=== PATIENT | female | born 1945 | race Caucasian/White ===

== ENCOUNTER 2019-12-26 14:47 | Inpatient (IN) ==
[2019-12-26] MEDS ORDERED: dilTIAZem HCl 5 MG/ML 5 ML VIAL IV STA ×2 (15:08→16:09)
[2019-12-26] MEDS ORDERED: SODIUM CHLORIDE 0.9% 1000ML 500 ML IV ONE ×2 (15:08→16:09)
--- NOTE | 2019-12-26 15:36 | Emergency Department Note ---
Entered by Tray Gilman acting as a scribe for Zacarias Schultz DO History of Present Illness General Chief complaint: Arrhythmia/Palpitations Stated complaint: IRREG HEART BEAT Time Seen by Provider: 12/26/19 15:03 Source: patient Limitations: no limitations History of Present Illness Onset (ago): hour(s) (BRONC BREAKER) Location: chest Pain Consistency: + constant Quality: + constant Associated symptoms: + denies other symptoms (trouble breathing, swelling or pain in legs, ); no chest pain The patient is a 74 year old female who presents to the Emergency Room with complaints of constant tachycardia starting BRONC BREAKER. The patient states she has been sick for a week. She states she was initially taking Alkaseltzer and Mucinex. She states she last took [id number] drugs two days ago. She states she takes two BP medication and one medication for her stomach. She states today she went to her PCP and the EKG showed her HR at 182. She states she is supposed to take baby aspirin daily, but states she ran out. The patient denies having chest pain, trouble breathing, swelling or pain in her legs, tobacco use, and alcohol use. She states her feet get really cold. She states her shoe worker is Dr. Eduardo. Home Medications Home Medications Medication Instructions Recorded Confirmed Type aspirin [Aspir-81] 81 mg PO DAILY 12/26/19 12/26/19 History atorvastatin 40 mg PO DAILY 12/26/19 12/26/19 History cholecalciferol (vitamin D3) 2,000 unit PO DAILY 12/26/19 12/26/19 History [Vitamin D3] losartan [Cozaar] 100 mg PO DAILY 12/26/19 12/26/19 History metoprolol tartrate 25 mg PO DAILY 12/26/19 12/26/19 History pantoprazole 40 mg PO DAILY 12/26/19 12/26/19 History Allergies Allergy/AdvReac Type Severity Reaction Status Date / Time No Known Allergies Allergy Unverified 12/26/19 15:36 Past Med/Surg History Medical History CKD (chronic kidney disease) stage 3, GFR 30-59 ml/min KATHERYN (generalized anxiety disorder) GERD (gastroesophageal reflux disease) HLD (hyperlipidemia) Hypertension Morbid (severe) obesity due to excess calories CUCO (obstructive sleep apnea) does not use cpap Pre-diabetes Surgical History History of appendectomy History of cataract extraction History of tonsillectomy and adenoidectomy History of tubal ligation Family History Brother Coronary heart disease Myocardial infarction Mother Valvular heart disease Grandmother (Maternal) Stroke Social History (Updated 12/26/19 @ 17:38 by Dana Uribe PA-C) Preferred Language: Nigerien Communication Ability: Effective marital status: Current Living Situation: Spouse Feels Safe at Home: Yes Smoking Status: Never smoker Hx Alcohol Use: No Hx Substance Use: No Review of Systems See HPI for pertinent positives & negatives. and A total of 10 systems reviewed and were otherwise negative Physical Exam Vital Signs Vital Signs - 24 hr 12/26/19 14:52 12/26/19 15:04 12/26/19 15:06 Temperature Source Oral Pulse Rate 158 H 181 H 183 H Pulse Rate [Apical] Pulse Rate from SpO2 Sensor 159 H Respiratory Rate 20 20 22 Blood Pressure 159/106 H 156/93 H Blood Pressure [Right Arm] Blood Pressure Mean 123 121 Blood Pressure Mean [Right Arm] Pulse Oximetry 92 98 Oxygen Delivery Method Room Air Sepsis Recent Fever Within 48 Hours No Sepsis New/Unexplained Change in Mental Status No Sepsis Action Taken by Nursing No Action Required 12/26/19 15:15 12/26/19 15:30 12/26/19 15:45 Temperature Source Pulse Rate 172 H 119 H 114 H Pulse Rate [Apical] Pulse Rate from SpO2 Sensor 83 82 Respiratory Rate 18 15 13 Blood Pressure Blood Pressure [Right Arm] Blood Pressure Mean Blood Pressure Mean [Right Arm] Pulse Oximetry 97 91 Oxygen Delivery Method Sepsis Recent Fever Within 48 Hours Sepsis New/Unexplained Change in Mental Status Sepsis Action Taken by Nursing 12/26/19 16:00 12/26/19 16:03 12/26/19 16:06 Temperature Source Pulse Rate 123 H 107 H Pulse Rate [Apical] Pulse Rate from SpO2 Sensor 83 82 Respiratory Rate 14 21 Blood Pressure 161/113 H Blood Pressure [Right Arm] Blood Pressure Mean 132 Blood Pressure Mean [Right Arm] Pulse Oximetry 95 94 94 Oxygen Delivery Method Sepsis Recent Fever Within 48 Hours Sepsis New/Unexplained Change in Mental Status Sepsis Action Taken by Nursing 12/26/19 16:17 12/26/19 16:22 12/26/19 16:27 Temperature Source Pulse Rate 130 H 142 H Pulse Rate [Apical] 152 H Pulse Rate from SpO2 Sensor 125 H 109 H Respiratory Rate 17 19 22 Blood Pressure 159/135 H 135/104 H Blood Pressure [Right Arm] 135/105 H Blood Pressure Mean 149 117 Blood Pressure Mean [Right Arm] 115 Pulse Oximetry 95 95 97 Oxygen Delivery Method Room Air Sepsis Recent Fever Within 48 Hours Sepsis New/Unexplained Change in Mental Status Sepsis Action Taken by Nursing 12/26/19 16:30 12/26/19 16:32 12/26/19 16:45 Temperature Source Pulse Rate 161 H 125 H 103 H Pulse Rate [Apical] Pulse Rate from SpO2 Sensor 151 H 109 H 96 H Respiratory Rate 14 14 12 Blood Pressure 98/62 L 139/109 H Blood Pressure [Right Arm] Blood Pressure Mean 88 114 Blood Pressure Mean [Right Arm] Pulse Oximetry 98 97 97 Oxygen Delivery Method Sepsis Recent Fever Within 48 Hours Sepsis New/Unexplained Change in Mental Status Sepsis Action Taken by Nursing 12/26/19 17:00 12/26/19 17:15 12/26/19 17:26 Temperature Source Pulse Rate 142 H 118 H 102 H Pulse Rate [Apical] Pulse Rate from SpO2 Sensor 141 H Respiratory Rate 31 H 16 11 L Blood Pressure 154/100 H Blood Pressure [Right Arm] Blood Pressure Mean 135 Blood Pressure Mean [Right Arm] Pulse Oximetry 96 Oxygen Delivery Method Sepsis Recent Fever Within 48 Hours Sepsis New/Unexplained Change in Mental Status Sepsis Action Taken by Nursing 12/26/19 17:27 12/26/19 17:30 12/26/19 17:31 Temperature Source Pulse Rate 117 H 126 H 117 H Pulse Rate [Apical] Pulse Rate from SpO2 Sensor 120 H 70 Respiratory Rate 15 12 17 Blood Pressure 130/105 H Blood Pressure [Right Arm] Blood Pressure Mean 107 Blood Pressure Mean [Right Arm] Pulse Oximetry 93 94 Oxygen Delivery Method Sepsis Recent Fever Within 48 Hours Sepsis New/Unexplained Change in Mental Status Sepsis Action Taken by Nursing GENERAL: Patient is awake alert in no acute distress patient is resting comfortably and showing no signs of anxiety EYES: The conjunctivae are clear. The pupils are round and reactive. EARS, NOSE, MOUTH AND THROAT: The nose is without any evidence of any deformity. Mucous membranes are moist. NECK: The neck is nontender and supple. RESPIRATORY: Normal respiratory effort is noted there is no evidence of wheezing rhonchi or rales CARDIOVASCULAR: Tachycardic and irregular rate was noted to auscultation. There is no definite murmur. GASTROINTESTINAL: The abdomen is soft. Abdomen is nontender. MUSCULOSKELETAL/EXTREMITIES: There is no evidence of gross deformity full range of motion is noted in the hips and shoulders. SKIN: There is no obvious evidence of any rash. There are no petechiae, pallor or cyanosis noted. NEUROLOGIC: Patient is awake alert and oriented x3. Course Course 1504: The patient was evaluated in room C9, and a complete history and physical examination were performed. 1631: I discussed the patient's case with Dr[facility]. He will evaluate the patient for further management. Administered Medications Magnesium Sulfate/Dextrose (Magnesium Sulfate / D5w) 1 gm in 100 mls @ 100 mls/hr IV Q1H STEPHENIE Stop: 12/26/19 18:14 Last Admin: 12/26/19 16:27 Dose: 100 mls/hr Documented by: [id number] Discontinued Medications Diltiazem HCl (Cardizem) 10 mg IV NOW STA Stop: 12/26/19 15:09 Last Admin: 12/26/19 15:22 Dose: 10 mg Documented by: [id number] Cosigned by: [id number] Diltiazem HCl (Cardizem) 10 mg IV NOW STA Stop: 12/26/19 16:10 Last Admin: 12/26/19 16:27 Dose: 10 mg Documented by: [id number] Cosigned by: [id number] Sodium Chloride (Nss 1000ml) 500 mls @ 999 mls/hr IV .Q31M ONE Stop: 12/26/19 15:38 Last Infusion: 12/26/19 15:52 Dose: 0 mls/hr Documented by: [id number] Admin: 12/26/19 15:22 Dose: 999 mls/hr Documented by: [id number] Sodium Chloride (Nss 1000ml) 500 mls @ 999 mls/hr IV .Q31M ONE Stop: 12/26/19 16:39 Last Admin: 12/26/19 16:27 Dose: 999 mls/hr Documented by: [id number] Potassium Chloride (Klor-Con M20) 40 meq PO NOW STA Stop: 12/26/19 16:50 Last Admin: 12/26/19 17:19 Dose: 40 meq Documented by: [id number] Critical Care Time Critical Care Time: Yes Total Critical Care Time: 63 I have personally spent 63 minutes of critical care time in the direct management of this patient. This includes bedside care, interpretation of diagnostic studies, and testing, discussion with consultants, patient, and family members, and other required patient management activities. This 63 minutes is in excess of all separately billable procedures. Medical Decision Making Differential Diagnosis Differential diagnosis includes etiologies such as premature contractions, electrolyte abnormality, cardiac dysrhythmia, thyroid dysfunction, pulmonary embolism, infection, gastrointestinal, as well as others were entertained. Medical Records Attestation: I reviewed the patient's medical records. Home Medications Current Medication List: was personally reviewed by me Laboratory Data Attestation: I reviewed the patient's lab results. Result diagrams: 12/26/19 15:19 12/26/19 15:19 Lab Results 12/26/19 12/26/19 12/26/19 Range/Units 15:19 15:19 15:19 WBC 11.00 H (4.8-10.8) K/uL RBC 6.01 H (4.2-5.4) M/uL Hgb 16.9 H (12.0-16.0) g/dL Hct 49.0 H (37-47) % MCV 81.5 (80-100) fL MCH 28.1 (25-34) pg MCHC 34.5 (32-36) g/dL RDW Std Deviation 39.9 (36.4-46.3) fL RDW Coeff of Jakob 13.3 (11.5-14.5) % Plt Count 446 H (130-400) K/uL MPV 9.4 (7.4-10.4) fL Immature Gran % (Auto) 0.2 % Neut % (Auto) 54.0 % Lymph % (Auto) 38.3 % Morehouse % (Auto) 5.8 % Eos % (Auto) 1.4 % Baso % (Auto) 0.3 % Immature Gran # (Auto) 0.02 (0.00-0.02) K/uL Neut # (Auto) 5.95 (1.4-6.5) K/uL Lymph # (Auto) 4.21 H (1.2-3.4) K/uL Morehouse # (Auto) 0.64 H (0.11-0.59) K/uL Eos # (Auto) 0.15 (0-0.5) K/uL Baso # (Auto) 0.03 (0-0.2) K/uL PT 10.3 (9.0-12.0) Seconds INR 1.0 (0.9-1.1) APTT 28.6 (21.0-31.0) Seconds PTT Ratio 1.1 Sodium 138 (136-145) mmol/L Potassium 3.7 (3.5-5.1) mmol/L Chloride 106 (98-107) mmol/L Carbon Dioxide 24 (21-32) mmol/L Anion Gap 8.0 (3-11) BUN 17 (7-18) mg/dl Creatinine 1.36 H (0.6-1.2) mg/dl Est Cr Clr Drug Dosing 41.5 ml/min Est GFR ( Amer) 44.6 Est GFR (Non-Af Amer) 38.5 BUN/Creatinine Ratio 12.7 (10-20) Glucose 120 H (70-99) mg/dl Calcium 9.4 (8.5-10.1) mg/dl Magnesium 1.7 L (1.8-2.4) mg/dl Total Bilirubin 0.7 (0.2-1) mg/dl AST 17 (15-37) U/L ALT 39 (12-78) U/L Alkaline Phosphatase 113 (45-117) U/L Troponin I 0.015 (0-0.045) ng/ml Total Protein 7.8 (6.4-8.2) gm/dl Albumin 3.6 (3.4-5.0) gm/dl Globulin 4.2 H (2.5-4.0) gm/dl Albumin/Globulin Ratio 0.9 (0.9-2) TSH 2.220 (0.300-4.500) uIu/ml Imaging Data Radiologist's Impression: Radiology results as stated below per my review and the radiologist's interpretation: SINGLE VIEW CHEST CLINICAL HISTORY: Generalized weakness. FINDINGS: An AP, portable, upright chest radiograph is compared to study dated 07/13/2015. The examination is degraded by portable technique and patient rotation. The heart is enlarged noting atherosclerotic calcification of the thoracic aorta. The pulmonary vasculature is noncongested. There is bibasilar scarring/atelectasis. No airspace consolidation or large pleural effusion is identified. Atelectasis is noted at the lung bases. No pneumothorax is seen. The skeletal structures are osteopenic. The bony thorax is grossly intact. IMPRESSION: Cardiomegaly with no acute cardiopulmonary abnormality. ACT 112: Negative or not required by law. Results electronically sent 12/26/2019 3:50 PM to: Zacarias Schultz DO Electronically signed by: Chencho Stuart M.D. 12/26/2019 3:50 PM ECG Data Attestation: I personally reviewed and interpreted this ECG as follows: Indication: + tachycardia Rate (beats per minute): 180 Rhythm: + atrial fibrillation ECG ST segments: + ST depression (Diffuse) ECG Findings: no PVCs Comparison ECG Date: from (07/13/15) Change: the following changes noted (Diffuse ST segment depression is new) Blood Pressure Blood Pressure Findings: Elevated blood pressure Blood Pressure Disposition: Referred to patients primary care provider [facility] [place] Continuous Cardiac Monitoring: An order was placed for continuous cardiac monitoring. The monitor shows a rate of 182 with an atrial fibrillation rhythm The patient is a 74-year-old female who presented to the emergency department for an evaluation of palpitations. The patient was seen at her primary care physician's office and was sent to the emergency department by private vehicle for atrial fibrillation with RVR. The patient presented with a pulse rate in the 180s. She was treated with IV fluids IV magnesium and IV Cardizem. She was treated with multiple doses of IV Cardizem. She was reevaluated multiple times. Symptoms slowly improved and she was feeling much better. I discussed the patient's laboratory and radiographic studies with her. I also discussed the diagnosis of atrial fibrillation with her. I discussed her case with the on- call [facility] hospitalist group. They have agreed to evaluate the patient in the emergency department for further management disposition. I will defer anticoagulation to the hospitalist team. Impression & Plan Atrial fibrillation with RVR, Palpitation, Hypomagnesemia Discharge Plan Visit Data Chief Complaint: Arrhythmia/Palpitations Stated Complaint: IRREG HEART BEAT ED Provider: Zacarias Schultz Discharge Problem: Atrial fibrillation with RVR, Palpitation, Hypomagnesemia Patient Disposition: Being Evaluated by Hospitalist Forms Stand Alone Forms: My [facility] Prescriptions Prescriptions: No Action atorvastatin 40 mg Tablet 40 mg PO DAILY RF: 0 aspirin [Aspir-81] 81 mg Tablet,Delayed Release (Dr/Ec) 81 mg PO DAILY RF: 0 pantoprazole 40 mg Tablet,Delayed Release (Dr/Ec) 40 mg PO DAILY RF: 0 losartan [Cozaar] 100 mg Tablet 100 mg PO DAILY RF: 0 metoprolol tartrate 25 mg Tablet 25 mg PO DAILY RF: 0 cholecalciferol (vitamin D3) [Vitamin D3] 50 mcg (2,000 unit) Tablet 2,000 unit PO DAILY RF: 0 Referrals Referrals: Wilda Deluca, DO [Primary Care Provider] - The scribe's documentation has been prepared under my direction and personally reviewed by me in its entirety. I confirm that the note above accurately reflects all work, treatment, procedures, and medical decision making performed by me.
[2019-12-26 15:41] LABS: Basophils # (auto) 0.03 K/uL (0-0.2); Basophils % (auto) 0.3 %; Eosinophils # (auto) 0.15 K/uL (0-0.5); Eosinophils % (auto) 1.4 %; Hemoglobin 16.9 g/dL (12.0-16.0); Immature Granulocytes # (auto) 0.02 K/uL (0.00-0.02); Immature Granulocytes % (auto) 0.2 %; Lymphocytes # (auto) 4.21 K/uL (1.2-3.4); Lymphocytes % (auto) 38.3 %; Mean Corpuscular Hemoglobin 28.1 pg (25-34); Mean Corpuscular Hgb Conc 34.5 g/dL (32-36); Mean Corpuscular Volume 81.5 fL (80-100); Mean Platelet Volume 9.4 fL (7.4-10.4); Monocytes # (auto) 0.64 K/uL (0.11-0.59); Monocytes % (auto) 5.8 %; Neutrophils # (auto) 5.95 K/uL (1.4-6.5); Platelet Count 446 K/uL (130-400); RDW Coefficient of Variation 13.3 % (11.5-14.5); RDW Standard Deviation 39.9 fL (36.4-46.3); Red Blood Count 6.01 M/uL (4.2-5.4)
--- NOTE | 2019-12-26 15:51 | XRay Report ---
SINGLE VIEW CHEST CLINICAL HISTORY: Generalized weakness. FINDINGS: An AP, portable, upright chest radiograph is compared to study dated 07/13/2015. The examina tion is degraded by portable technique and patient rotation. The heart is enlarged noting atheroscler otic calcification of the thoracic aorta. The pulmonary vasculature is noncongested. There is bibasil ar scarring/atelectasis. No airspace consolidation or large pleural effusion is identified. Atelectas is is noted at the lung bases. No pneumothorax is seen. The skeletal structures are osteopenic. The b jimmie thorax is grossly intact. IMPRESSION: Cardiomegaly with no acute cardiopulmonary abnormality. ACT 112: Negative or not required by law. Results electronically sent 12/26/2019 3:50 PM to: Zacarias Schultz DO Electronically signed by: Chencho Stuart M.D. 12/26/2019 3:50 PM
[2019-12-26 15:53] LABS: Partial Thromboplastin Ratio 1.1; Partial Thromboplastin Time 28.6 Seconds (21.0-31.0); Prothrombin Time 10.3 Seconds (9.0-12.0)
[2019-12-26 16:03] LABS: Albumin Level 3.6 gm/dl (3.4-5.0); BUN Creatinine Ratio 12.7 (10-20); Calcium 9.4 mg/dl (8.5-10.1); Creatinine Clr Calc Pharmacy 41.5 ml/min; Est GFR (African American) 44.6; Est GFR (Non-African American) 38.5; Magnesium 1.7 mg/dl (1.8-2.4); Potassium 3.7 mmol/L (3.5-5.1)
[2019-12-26 16:14] LABS: Albumin Globulin Ratio 0.9 (0.9-2); Bilirubin,Total 0.7 mg/dl (0.2-1); Globulin 4.2 gm/dl (2.5-4.0); Thyroid Stimulating Hormone 2.22 uIu/ml (0.300-4.500); Total Protein 7.8 gm/dl (6.4-8.2); Troponin I 0.015 ng/ml (0-0.045)
[2019-12-26] MEDS: MAGNESIUM SULFATE / D5W 1 GM/100 ML BAG IV SCH ×2 (16:27→21:25)
[2019-12-26] MEDS ORDERED: POTASSIUM CHLORIDE 20 MEQ TABCR PO STA (16:49)
[2019-12-26] MEDS ORDERED: STAT IV Infusion **Titration per Protocol STA (17:01)
[2019-12-26] MEDS ORDERED: HEPARIN SODIUM/DEXTROSE 25,000 UNITS/500 ML BAG IV SCH (17:15)
--- NOTE | 2019-12-26 17:30 | History & Physical Report ---
Date of Service December 26, 2019 Assessment & Plan (1) Atrial fibrillation with RVR: New onset A. fib with RVR Etiology unknown but possibly secondary to underlying infection/illness, dehydration, structural heart disease, untreated CUCO Duration unknown but reports palpitations for 1 week Admit to telemetry consult cardiology Diltiazem drip for HR control Initiate IV heparin gtt ([id number] 3 age, F, HTN) Keep Mag > 2.0 and K > 4.0 give 40meq KCl x 1 now treat sinusitis, swab for flu echocardiogram ordered (2) Acute sinusitis: Augmentin 875mg bid x 7 days probiotic ordered (3) Dehydration: Cr elevated to 1.36 baseline 1.1 mild acute renal insufficiency possibly 2/2 to dehydration and underlying illness vs physiologic in response to Afib received 1L IVF while in ED repeat bmp in a.m. (4) Hypomagnesemia: Mag 1.7 mag sulfate 2g ordered in ED keep mag > 2.0 repeat in a.m. (5) Hypertension: Blood pressure elevated in ED, likely in setting of A. fib with RVR Continue losartan and metoprolol (6) HLD (hyperlipidemia): Continue statin (7) Pre-diabetes: Last A1c 6.3 04/2019 Repeat A1c in a.m. Monitor fasting blood sugar (8) Morbid (severe) obesity due to excess calories: BMI 44.5 Encourage lifestyle modifications (9) DVT prophylaxis: IV heparin ordered for A. fib with RVR Disposition: Admit to telemetry Follow-up: PCP Dr. Deluca upon discharge along with appropriate follow-up with cardiology Patient was seen and examined in collaboration with Dr. Casas, please see addendum History of Present Illness Chief Complaint: Referred by PCP secondary to A. fib with RVR. Primary Care Provider: Wilda Deluca, DO This is a 74-year-old female with significant PMH of HTN, HLD, prediabetes, CKD stage III, morbid obesity, CUCO noncompliant with CPAP, GERD who presents to ED at the referral of PCP secondary to A. fib with RVR. Patient expresses she has been having URI-like symptoms for 8 days. She complains of sinus congestion with purulent rhinorrhea, teeth pain, facial pain, feeling feverish, myalgias for the past 8 days. 2 days ago symptoms started to improve however when she woke up this morning she felt significantly worse and her left eye was, "crusted shut." She also elicits to having intermittent heart palpitations for the past 1 week. She scheduled appointment to see PCP today for URI-like symptoms and she was found to be in A. fib with RVR with heart rate in the 180s. She denies any previous history of atrial arrhythmias. She denies any documented fever, chills, sweats, lightheadedness, dizziness, chest pain. She does complain of D OE but felt this was secondary to her URI-like symptoms. She denies any nausea, vomiting, diarrhea, change in bowel or urinary habits. She has been taking OTC sinus medications as well as nasal spray, but unsure of what kind. She last took these approximately 2 days ago. She does have hx of HTN controlled on oral antihypertensives. +Hx of CUCO but not compliant with CPAP. In ED she was in afib with RVR but otherwise hemodynamically stable. She received 2 - 10mg bolus of IV cardizem with improvements in heart rate. With minimal activity she would spike in the 160s-180s. Lab work abnormalities noted for mild elevated WBC 11 K t, H&H 16.9 and 49.0, platelet 146, K3.7, mag 1.7, BUN 17, creatinine 1.36, glucose 120, troponin 0.015, TSH WNL. Chest x-ray was negative for acute cardiopulmonary abnormality but did reveal cardiomegaly. Initial EKG revealed A. fib with a heart rate of [address] depressions. Allergies Allergy/AdvReac Type Severity Reaction Status Date / Time No Known Allergies Allergy Unverified 12/26/19 15:36 Home Medications Home Medications Medication Instructions Recorded Confirmed Type aspirin [Aspir-81] 81 mg PO DAILY 12/26/19 12/26/19 History atorvastatin 40 mg PO DAILY 12/26/19 12/26/19 History cholecalciferol (vitamin D3) 2,000 unit PO DAILY 12/26/19 12/26/19 History [Vitamin D3] losartan [Cozaar] 100 mg PO DAILY 12/26/19 12/26/19 History metoprolol tartrate 25 mg PO DAILY 12/26/19 12/26/19 History pantoprazole 40 mg PO DAILY 12/26/19 12/26/19 History Past Med/Surg History Medical History CKD (chronic kidney disease) stage 3, GFR 30-59 ml/min KATHERYN (generalized anxiety disorder) GERD (gastroesophageal reflux disease) HLD (hyperlipidemia) Hypertension Morbid (severe) obesity due to excess calories CUCO (obstructive sleep apnea) does not use cpap Pre-diabetes Surgical History History of appendectomy History of cataract extraction History of tonsillectomy and adenoidectomy History of tubal ligation Family History Brother Coronary heart disease Myocardial infarction Mother Valvular heart disease Grandmother (Maternal) Stroke Social History (Updated 12/26/19 @ 17:38 by Dana Uribe PA-C) Preferred Language: French Communication Ability: Effective Beliefs That Will Affect Care: None marital status: Current Living Situation: Spouse Other Information That Helps Us Care for You: No Feels Safe at Home: Yes Safety Concerns: Feels Safe At This Time Smoking Status: Never smoker Hx Alcohol Use: No Hx Substance Use: No Review of Systems Review of Systems: All systems reviewed & are unremarkable except as noted in HPI & below Physical Exam Physical Exam: Constitutional: WD/WN, morbidly obese, F, vitals as above, NAD, sitting up in bed, pleasant, conversing easily Head: Normocephalic, Atraumatic Eyes: PERRL, conjunctivae normal, anicteric sclerae ENMT: external ear and nose normal,+ facial swelling, pain to palpation of maxillary sinus, oropharynx normal Neck: trachea midline, no thyromegaly normal visual inspection Respiratory: normal respiratory effort, lungs clear to auscultation, no wheeze, rales, rhonchi. Normal insp/exp effort, no accessory muscle use Cardiovascular: IRR, IRR, no murmur, trace - + 1 b/l lower ext edema Vessels: no JVD or carotid bruit Chest: normal inspection of chest Abdomen: normal bowel sounds, soft, nontender, no hepatosplenomegaly Musculoskeletal: no cyanosis or clubbing, extremities motor strength 5/5 Skin: no rashes, warm and dry normal turgor Neurologic: PERRL, EOMI, accommodation nl, no face palsy, no dysarthria CN's II-XI intact bilaterally and moves all extremities Psychiatric: A+Ox3, euthymic affect Lymphatic: no cervical or axillary lymphadenopathy : deferred Results & Data Vital Signs (Past 12 Hours) Vital Signs Pulse Pulse Resp BP BP Pulse Ox 12/26/19 17:26 102 H 11 L 154/100 H 12/26/19 17:15 118 H 16 12/26/19 17:00 142 H 31 H 96 12/26/19 16:45 103 H 12 97 12/26/19 16:32 125 H 14 139/109 H 97 12/26/19 16:30 161 H 14 98/62 L 98 12/26/19 16:27 152 H 22 135/105 H 97 12/26/19 16:22 142 H 19 135/104 H 95 12/26/19 16:17 130 H 17 159/135 H 95 12/26/19 16:06 94 12/26/19 16:03 107 H 21 161/113 H 94 12/26/19 16:00 123 H 14 95 12/26/19 15:45 114 H 13 91 12/26/19 15:30 119 H 15 97 12/26/19 15:15 172 H 18 12/26/19 15:06 183 H 22 156/93 H 98 12/26/19 15:04 181 H 20 12/26/19 14:52 158 H 20 159/106 H 92 Laboratory Results Short CBC 12/26/19 12/26/19 Range/Units 15:19 15:19 WBC 11.00 H (4.8-10.8) K/uL Hgb 16.9 H (12.0-16.0) g/dL Hct 49.0 H (37-47) % Plt Count 446 H (130-400) K/uL Creatinine 1.36 H (0.6-1.2) mg/dl BMP 12/26/19 15:19 Sodium 138 Potassium 3.7 Chloride 106 Carbon Dioxide 24 BUN 17 Creatinine 1.36 H Glucose 120 H Calcium 9.4 Cardiac Enzymes 12/26/19 Range/Units 15:19 Troponin I 0.015 (0-0.045) ng/ml Liver Function 12/26/19 Range/Units 15:19 Total Bilirubin 0.7 (0.2-1) mg/dl AST 17 (15-37) U/L ALT 39 (12-78) U/L Alkaline Phosphatase 113 (45-117) U/L Albumin 3.6 (3.4-5.0) gm/dl Diagnostic Findings CXR: IMPRESSION: Cardiomegaly with no acute cardiopulmonary abnormality. Medications Administered Magnesium Sulfate/Dextrose (Magnesium Sulfate / D5w) 1 gm in 100 mls @ 100 mls/hr IV Q1H STEPHENIE Stop: 12/26/19 18:14 Last Admin: 12/26/19 16:27 Dose: 100 mls/hr Documented by: [id number] Discontinued Medications Diltiazem HCl (Cardizem) 10 mg IV NOW STA Stop: 12/26/19 15:09 Last Admin: 12/26/19 15:22 Dose: 10 mg Documented by: [id number] Cosigned by: [id number] Diltiazem HCl (Cardizem) 10 mg IV NOW STA Stop: 12/26/19 16:10 Last Admin: 12/26/19 16:27 Dose: 10 mg Documented by: [id number] Cosigned by: [id number] Sodium Chloride (Nss 1000ml) 500 mls @ 999 mls/hr IV .Q31M ONE Stop: 12/26/19 15:38 Last Infusion: 12/26/19 15:52 Dose: 0 mls/hr Documented by: [id number] Admin: 12/26/19 15:22 Dose: 999 mls/hr Documented by: [id number] Sodium Chloride (Nss 1000ml) 500 mls @ 999 mls/hr IV .Q31M ONE Stop: 12/26/19 16:39 Last Admin: 12/26/19 16:27 Dose: 999 mls/hr Documented by: [id number] Potassium Chloride (Klor-Con M20) 40 meq PO NOW STA Stop: 12/26/19 16:50 Last Admin: 12/26/19 17:19 Dose: 40 meq Documented by: [id number] ECG Rate (beats per minute): 180 Rhythm: atrial fibrillation Findings: + ST depression Code Status & VTE Plan Code Status Full Code VTE Prophylaxis Plan VTE Prophylaxis will be ordered: Yes Supervising Physician Co-Signing Physician Notes Attending addendum The patient was seen and examined in emergency room in presence of the She has been complaining of sinus pain and symptoms for the last 1 week Associated with palpitations but no chest pain and/or shortness of breath Denies any leg swelling And noted to have atrial fibrillation with RVR in the emergency room On examination Lying in bed with minimal distress due to sinus pain and pressure Hemodynamically stable with tachycardia Chest-clear to auscultate bilaterally Heart S1-S2 regular-, no murmur Abdomen-benign Extremities-trace edema bilaterally [employer]-alert, awake and oriented x3 Admission labs and imaging studies and EKG reviewed Has atrial fibrillation with RVR-Cardizem drip and heparin drip have been started Cardiology consulted Started with Augmentin for sinusitis Agree with assessment and plan as outlined above by OSWALDO Ibrahim Dr
[2019-12-26] MEDS ORDERED: ONDANSETRON INJ 2 MG/ML 2 ML VIAL IV PRN (18:04)
[2019-12-26] MEDS ORDERED: POLYETHYLENE (MIRALAX) 17 GM PACK PO PRN (18:04)
[2019-12-26] MEDS ORDERED: ALUMINUM/MAGNESIUM SUSP 30 ML UDC PO PRN (18:04)
[2019-12-26] MEDS ORDERED: ACETAMINOPHEN 325 MG TAB PO PRN (18:04)
[2019-12-26 18:24] LABS: Influenza A virus by PCR Neg for Influ A (Neg); Influenza B virus by PCR Neg for Influ B (Neg)
[2019-12-26] MEDS: SACCHAROMYCES BOULARDII 250 MG CAP PO SCH (19:12)
[2019-12-26] MEDS: AMOXICILLIN/CLAVULANATE 875 MG TAB PO SCH (19:12)
[2019-12-26] MEDS: dilTIAZem HCL 125 MG in DEXTROSE 5% 100 ML IV SCH (19:38)
[2019-12-26] MEDS: Heparin IV Standard *NO* Bolus IV SCH ×5 (20:05→22:13)
--- NOTE | 2019-12-26 22:31 | Electrocardiogram Report ---
Test Reason : Blood Pressure : / mmHG Vent. Rate : 180 BPM Atrial Rate : 178 BPM P-R Int : 000 ms QRS Dur : 070 ms QT Int : 256 ms P-R-T Axes : 000 -15 127 degrees QTc Int : 443 ms Atrial fibrillation with rapid ventricular response Nonspecific ST abnormality Abnormal ECG When compared with ECG of 13-JUL-2015 14:04, Atrial fibrillation has replaced Sinus rhythm Vent. rate has increased BY [address] now depressed in Inferolateral leads Nonspecific T wave abnormality now evident in Lateral leads Confirmed by Joe Reynoso ([id number]) on 12/26/2019 10:31:46 PM Referred By: Confirmed By:Joe Reynoso
[2019-12-27 02:21] LABS: Hematocrit (blood only) 43.5 % (37-47); Hemoglobin 15.1 g/dL (12.0-16.0); Mean Corpuscular Hemoglobin 28.6 pg (25-34); Mean Corpuscular Hgb Conc 34.7 g/dL (32-36); Mean Corpuscular Volume 82.4 fL (80-100); Mean Platelet Volume 8.8 fL (7.4-10.4); Platelet Count 412 K/uL (130-400); RDW Coefficient of Variation 13.5 % (11.5-14.5); RDW Standard Deviation 40.4 fL (36.4-46.3); Red Blood Count 5.28 M/uL (4.2-5.4); White Blood Count 11.47 K/uL (4.8-10.8)
[2019-12-27 02:30] LABS: Partial Thromboplastin Ratio 1.5; Partial Thromboplastin Time 40.7 Seconds (21.0-31.0)
[2019-12-27 02:51] LABS: BUN Creatinine Ratio 11.5 (10-20); Calcium 8.4 mg/dl (8.5-10.1); Creatinine Clr Calc Pharmacy 40.1 ml/min; Est GFR (African American) 45.8; Est GFR (Non-African American) 39.6; Magnesium 2.3 mg/dl (1.8-2.4)
[2019-12-27] MEDS ORDERED: HEPARIN IV BOLUS 5,000 UNITS in SYRINGE 0 ML IV STA (03:15)
[2019-12-27 04:41] LABS: Appearance Urine Cloudy (Clear); Bacteria Urine Automated Negative (Negative); Bilirubin Urine Negative (Negative); Blood Urine Negative (Negative); Cast Urine Automated 0 /lpf (0-5); Color Urine Yellow; Epithelial Cell Urine Auto >30 /lpf (0-5); Glucose Urine UA Negative (Negative); Ketones Urine Negative (Negative); Leukocyte Esterase Urine 2+ (Negative); Nitrite Urine Negative (Negative); Protein Urine Negative (Negative); RBC Urine Automated 0-4 /hpf (0-4); Urobilinogen Urine Negative (Negative); pH Urine 5.5 (4.5-7.5)
[2019-12-27 07:33] LABS: Estimated Average Glucose 131 mg/dl; Hemoglobin A1C 6.2 % (4.5-5.6)
[2019-12-27] MEDS: dilTIAZem HCL 125 MG in DEXTROSE 5% 100 ML IV SCH ×2 (07:39→11:06)
[2019-12-27] MEDS: Heparin IV Standard *NO* Bolus IV SCH ×2 (08:17→08:30)
[2019-12-27] MEDS: SACCHAROMYCES BOULARDII 250 MG CAP PO SCH (08:21)
[2019-12-27] MEDS: LOSARTAN POTASSIUM 50 MG TAB PO SCH (08:21)
[2019-12-27] MEDS: AMOXICILLIN/CLAVULANATE 875 MG TAB PO SCH ×2 (08:22→17:12)
[2019-12-27] MEDS: PANTOprazole 40 MG TAB PO SCH (08:22)
[2019-12-27] MEDS: CHOLECALCIFEROL 1,000 UNITS 25 MCG TAB PO SCH (08:22)
[2019-12-27] MEDS: METOPROLOL TARTRATE 25 MG TAB PO SCH (08:22)
[2019-12-27] MEDS: ATORVASTATIN 40 MG TAB PO SCH (08:22)
[2019-12-27] MEDS ORDERED: BENZONATATE 100 MG CAPSULE PO PRN (10:13)
[2019-12-27] MEDS: dilTIAZem HCL 180 MG CAPCR PO SCH (11:04)
[2019-12-27] MEDS: APIXABAN 2.5 MG TAB PO SCH ×2 (11:27→21:50)
[2019-12-27 12:10] LABS: Partial Thromboplastin Ratio 2.2
[2019-12-27 12:12] LABS: Partial Thromboplastin Time 60.5 Seconds (21.0-31.0)
--- NOTE | 2019-12-27 13:30 | Cardiology Consultation ---
Date of Consultation December 27, 2019 Assessment & Plan (1) Atrial fibrillation with RVR: Asymptomatic. We discussed rate versus rhythm control and given her lack of symptoms she would like to pursue rate control. So, to that end I will initiate Eliquis 5 mg p.o. twice daily today for anticoagulation. Her rate has been well controlled with a Cardizem drip so I will attempt to switch her over to p.o. today and start her on Cardizem CD 180 mg p.o. daily. Her metoprolol will also be continued. I would like to monitor overnight on telemetry to make sure that this treatment plan is efficacious and she is willing to stay. (2) Acute sinusitis: As per primary team (3) Hypertension: Controlled (4) HLD (hyperlipidemia): (5) Pre-diabetes: History of Present Illness Reason for Consultation: New-onset atrial fibrillation with rapid ventricular response Requesting Physician: Dr. Goetz Attending Physician: Cindy Goetz, DO History of Present Illness It was my pleasure to see Mrs. Holt in consultation today December 27, 2019. She is a very pleasant 74-year-old woman who I have seen once as an outpatient for a false positive stress test. She presents to [facility] on 12/26/2019 as per the directions of her primary care physician Dr. Deluca after she was found to be in atrial fibrillation with rapid ventricular response. Patient states that she has been battling a sinus infection for several days now and went to see her PCP for treatment. Upon evaluation she was found be in atrial fibrillation with rapid ventricular response and sent to the emergency department. In the ER, she was started on heparin and Cardizem drips and admitted to telemetry. Clinically she states her only complaints of the sinus infection. She denies any cardiac complaints of chest pain, shortness of breath, palpitations, lightheadedness, dizziness or syncope. She is very anxious for discharge and asking if she can be sent home today. Allergies Allergy/AdvReac Type Severity Reaction Status Date / Time No Known Allergies Allergy Unverified 12/26/19 15:36 Home Medications Home Medications Medication Instructions Recorded Confirmed Type aspirin [Aspir-81] 81 mg PO DAILY 12/26/19 12/26/19 History atorvastatin 40 mg PO DAILY 12/26/19 12/26/19 History cholecalciferol (vitamin D3) 2,000 unit PO DAILY 12/26/19 12/26/19 History [Vitamin D3] losartan [Cozaar] 100 mg PO DAILY 12/26/19 12/26/19 History metoprolol tartrate 25 mg PO DAILY 12/26/19 12/26/19 History pantoprazole 40 mg PO DAILY 12/26/19 12/26/19 History Patient History Medical History CKD (chronic kidney disease) stage 3, GFR 30-59 ml/min KATHERYN (generalized anxiety disorder) GERD (gastroesophageal reflux disease) HLD (hyperlipidemia) Hypertension Morbid (severe) obesity due to excess calories CUCO (obstructive sleep apnea) does not use cpap Pre-diabetes Surgical History History of appendectomy History of cataract extraction History of tonsillectomy and adenoidectomy History of tubal ligation Family History Brother Coronary heart disease Myocardial infarction Mother Valvular heart disease Grandmother (Maternal) Stroke Social History Preferred Language: Upper Sorbian Communication Ability: Effective Beliefs That Will Affect Care: None marital status: Current Living Situation: Spouse Other Information That Helps Us Care for You: No Feels Safe at Home: Yes Safety Concerns: Feels Safe At This Time Smoking Status: Never smoker Hx Alcohol Use: No Hx Substance Use: No Review of Systems Review of Systems: All systems reviewed & are unremarkable except as noted in HPI & below Physical Exam Physical Exam: General: Awake, alert and oriented x 3. No acute distress. HEENT: Normocephalic, atraumatic. Pupils equal, round and reactive to light and accommodation. Extraocular muscles are intact. Anicteric sclera. Moist mucous membranes. Neck: No JVD. No bruit. Cardiovascular: irregularly irregular, unable to appreciate murmur, rub or gallop. Pulmonary: Clear to auscultation bilaterally. No rales, rhonchi, or wheezing. Abdomen: Bowel sounds x 4, soft. No rebound, guarding or tenderness. No organomegaly. Extremities: No clubbing, cyanosis or edema. +2 pedal pulses bilaterally. Skin: Warm and dry. Results & Data ([facility]) Vital Signs (Past 12 Hours) Vital Signs Temp Pulse Pulse Resp BP Pulse Ox 12/27/19 11:06 36.5 C 86 20 116/81 94 12/27/19 06:58 36.3 C L 87 18 132/71 93 12/27/19 04:14 36.4 C L 70 20 118/70 95
--- NOTE | 2019-12-27 15:52 | Electrocardiogram Report ---
Test Reason : Blood Pressure : / mmHG Vent. Rate : 083 BPM Atrial Rate : 000 BPM P-R Int : 000 ms QRS Dur : 082 ms QT Int : 372 ms P-R-T Axes : 000 -19 026 degrees QTc Int : 437 ms Atrial fibrillation Minimal voltage criteria for LVH, may be normal variant ( R in aVL ) Abnormal ECG When compared with ECG of 26-DEC-2019 14:59, Vent. rate has decreased BY [address] no longer depressed in Inferior leads ST no longer depressed in Anterolateral leads Confirmed by Zacarias Waldrop ([id number]) on 12/27/2019 3:52:27 PM Referred By: Zacarias Schultz Confirmed By:Zacarias Waldrop
--- NOTE | 2019-12-27 16:46 | Hospitalist Progress Note ---
Date of Service December 27, 2019 Assessment & Plan (1) Atrial fibrillation with RVR: rate controlled on diltiazem, Eliquis started. Noted that she was on metoprolol 25mg daily at home. Cont this for now. Treat sinusitis. Noted also on prednisone taper. Monitor on telemetry overnight. Normal echo. (2) Acute sinusitis: Cont Augmentin and prednisone taper as instructed by outpatient provider. (3) FATEMEH (acute kidney injury): Mild FATEMEH poss 2/2 dehydration from recent illness. Hydrate, treat infection as above. Repeat BP in am. (4) Hypomagnesemia: repeat in am. (5) Hypertension: At goal, cont home Losartan (6) HLD (hyperlipidemia): cont statin per home regimen. (7) Pre-diabetes: A1C is 6.2 this admission. (8) Morbid (severe) obesity due to excess calories: (9) DVT prophylaxis: IV heaprin, transitioned to Eliquis Full Code Dispo- to home in am or when medically stable and cleared by cardiology. Monitor on telemetry overnight. C[facility] Goetz DO [facility] Date Admission Date: December 26, 2019 Subjective Pt is feeling much better today than when she came in initiially Reports nasal discharge and congestion for past 1.5-2 weeks. [place] fatigued and washed out-->pcp found her to be in new onset afib in clinic Pt denied any chest pain, sob or other symptoms and none overnight or today Telemetry reveals good heart rate control with diltiazem and cardiology has started her on Eliquis. Review of Systems Review of Systems: All systems reviewed & are unremarkable except as noted in Subjective Physical Exam Physical Exam: CONSTITUTIONAL: obese, vitals as above, generally well- appearing EYES: normal conjunctivae, no scleral icterus ENT: MMM RESPIRATORY: clear to auscultation bilaterally, no crackles, rales or wheezes, normal respiratory effort CARDIOVASCULAR: irregular rate and rhythm, S1 and 2 heard without murmurs, gallops or rubs, no JVD, no peripheral edema GASTROINTESTINAL: normal bowel sounds, soft, nontender, nondistended MUSCULOSKELETAL: strength 5/5 throughout, head is normocephalic and atraumatic SKIN: warm and dry NEUROLOGIC: CN 2-12 grossly intact, no sensory deficit, normal cognition, no gross focal deficits. PSYCHIATRIC: alert cooperative and oriented to person, place and time. Results & Data ([facility]) Vital Signs (Past 12 Hours) Vital Signs Temp Pulse Pulse Resp BP Pulse Ox 12/27/19 16:00 86 12/27/19 15:22 36.5 C 82 20 121/86 95 12/27/19 11:06 36.5 C 86 20 116/81 94 12/27/19 06:58 36.3 C L 87 18 132/71 93 Laboratory Results Short CBC 12/27/19 Range/Units 02:06 WBC 11.47 H (4.8-10.8) K/uL Hgb 15.1 (12.0-16.0) g/dL Hct 43.5 (37-47) % Plt Count 412 H (130-400) K/uL BMP 12/27/19 02:06 Sodium 138 Potassium 4.0 Chloride 107 Carbon Dioxide 25 BUN 15 Creatinine 1.33 H Glucose 128 H Calcium 8.4 L Urine 12/27/19 Range/Units 04:25 Urine Color Yellow Urine Appearance Cloudy A (Clear) Urine pH 5.5 (4.5-7.5) Ur Specific [place] 1.010 (1.000-1.030) Urine Protein Negative (Negative) Urine Glucose (UA) Negative (Negative) Medications Administered Current Inpatient Medications Acetaminophen (Tylenol) 650 mg PO Q4H PRN PRN Reason: Pain or Fever Stop: 01/25/20 18:03 Al Hydrox/Mg Hydrox/Simethicone (Maalox) 15 ml PO Q4H PRN PRN Reason: Dyspepsia Stop: 01/25/20 18:03 Amoxicillin/Clavulanate Potassium (Augmentin 875mg) 1 tab PO BIDM [facility] Stop: 01/05/20 18:03 Last Admin: 12/27/19 08:22 Dose: 1 tab Documented by: Apixaban (Eliquis) 5 mg PO BID [facility] Stop: 01/26/20 10:14 Last Admin: 12/27/19 11:27 Dose: 5 mg Documented by: Atorvastatin Calcium (Lipitor) 40 mg PO DAILY [facility] Stop: 01/26/20 08:59 Last Admin: 12/27/19 08:22 Dose: 40 mg Documented by: Benzonatate (Tessalon Perle) 100 mg PO Q6 PRN PRN Reason: Cough Stop: 01/26/20 10:12 Diltiazem HCl (Cardizem Cd) 180 mg PO QAM [facility] Stop: 01/26/20 10:14 Last Admin: 12/27/19 11:04 Dose: 180 mg Documented by: Diltiazem HCl 125 mg/ Dextrose 125 mls @ 5 mls/hr IV .Q24H [facility]; Protocol Stop: 01/25/20 18:14 Last Admin: 12/27/19 11:06 Dose: Not Given Documented by: Losartan Potassium (Cozaar) 100 mg PO DAILY [facility] Stop: 01/26/20 08:59 Last Admin: 12/27/19 08:21 Dose: 100 mg Documented by: Metoprolol Tartrate (Lopressor) 25 mg PO DAILY [facility] Stop: 01/26/20 08:59 Last Admin: 12/27/19 08:22 Dose: 25 mg Documented by: Ondansetron HCl (Zofran) 4 mg IV Q6H PRN PRN Reason: Nausea Stop: 01/25/20 18:03 Pantoprazole Sodium (Protonix) 40 mg PO DAILY [facility] Stop: 01/26/20 08:59 Last Admin: 12/27/19 08:22 Dose: 40 mg Documented by: Polyethylene Glycol (Miralax Powder Packet) 17 gm PO DAILY PRN PRN Reason: Constipation Stop: 01/25/20 18:03 Prednisone (Prednisone) 50 mg PO DAILY [facility] Stop: 01/26/20 16:14 Saccharomyces Boulardii (Florastor) 250 mg PO DAILY [facility] Stop: 01/25/20 18:03 Last Admin: 12/27/19 08:21 Dose: 250 mg Documented by: Vitamin D (Vitamin D3) 2,000 units PO DAILY [facility] Stop: 01/26/20 08:59 Last Admin: 12/27/19 08:22 Dose: 2,000 units Documented by:
[2019-12-27] MEDS: predniSONE 50 MG TAB PO SCH (17:38)
[2019-12-28] MEDS: AMOXICILLIN/CLAVULANATE 875 MG TAB PO SCH ×2 (07:26→17:03)
[2019-12-28] MEDS: CHOLECALCIFEROL 1,000 UNITS 25 MCG TAB PO SCH (07:27)
[2019-12-28] MEDS: APIXABAN 2.5 MG TAB PO SCH ×2 (07:27→20:22)
[2019-12-28] MEDS: dilTIAZem HCL 180 MG CAPCR PO SCH (07:27)
[2019-12-28] MEDS: ATORVASTATIN 40 MG TAB PO SCH (07:27)
[2019-12-28] MEDS: PANTOprazole 40 MG TAB PO SCH (07:27)
[2019-12-28] MEDS: SACCHAROMYCES BOULARDII 250 MG CAP PO SCH (07:27)
[2019-12-28] MEDS: predniSONE 50 MG TAB PO SCH (07:27)
[2019-12-28] MEDS: LOSARTAN POTASSIUM 50 MG TAB PO SCH (07:28)
[2019-12-28] MEDS: METOPROLOL TARTRATE 25 MG TAB PO SCH ×3 (07:28→20:22)
--- NOTE | 2019-12-28 08:49 | Cardiology Progress Note ---
Date of Service December 28, 2019 Assessment & Plan (1) Atrial fibrillation with RVR: (2) Acute sinusitis: (3) Morbid (severe) obesity due to excess calories: (4) Pre-diabetes: The patient is still having short runs of rapid atrial fibrillation but for the most part her heart rates are in the 90s. She is still acutely ill from her sinusitis and until this infection improves it will be difficult to control her heart rates. I will increase her beta-ivanna today as tolerated by her blood pressure. Subjective The patient still feels poorly due to her sinus infection. On the telemetry she remains in atrial fibrillation with burst of RVR. She has not been febrile. Review of Systems Review of Systems: All systems reviewed & are unremarkable except as noted in HPI & below Nothing additional to add. Physical Exam Physical Exam: General: no acute distress and stated age Head: normocephalic, no masses, lesions, tenderness or abnormalities Eyes: conjunctiva are pink and non-injected, sclera clear Neck: supple, no adenopathy, no bruits, normal jugular venous pulse, no hepatojugular reflux Chest: normal shape and normal respiratory effort Lungs: clear to auscultation and percussion Cardiac Exam: - irregular rate & rhythm, no murmurs gallops or rubs - normal S1, normal S2 Pulses: 2(+) throughout Abdomen: abdomen soft, non-tender, no abnormal masses and no hepatosplenomegaly Musculoskeletal: no gait disturbance, no joint inflammation, no deforming arthritis Extremities: no edema and no cyanosis Neuro: grossly normal exam Results & Data Vital Signs (Past 12 Hours) Vital Signs Temp Pulse Pulse Resp BP BP Pulse Ox 12/28/19 07:23 36.5 C 105 H 20 150/85 H 95 12/28/19 03:53 36.6 C 99 H 20 107/70 92 12/28/19 02:30 88 12/28/19 00:43 36.3 C L 99 H 20 138/84 90 Laboratory Results Laboratory Results - last 24 hr 12/27/19 09:58 APTT 60.5 H* PTT Ratio 2.2 Medications Administered Current Inpatient Medications Acetaminophen (Tylenol) 650 mg PO Q4H PRN PRN Reason: Pain or Fever Stop: 01/25/20 18:03 Al Hydrox/Mg Hydrox/Simethicone (Maalox) 15 ml PO Q4H PRN PRN Reason: Dyspepsia Stop: 01/25/20 18:03 Amoxicillin/Clavulanate Potassium (Augmentin 875mg) 1 tab PO BIDM [facility] Stop: 01/05/20 18:03 Last Admin: 12/28/19 07:26 Dose: 1 tab Documented by: Apixaban (Eliquis) 5 mg PO BID [facility] Stop: 01/26/20 10:14 Last Admin: 12/28/19 07:27 Dose: 5 mg Documented by: Atorvastatin Calcium (Lipitor) 40 mg PO DAILY [facility] Stop: 01/26/20 08:59 Last Admin: 12/28/19 07:27 Dose: 40 mg Documented by: Benzonatate (Tessalon Perle) 100 mg PO Q6 PRN PRN Reason: Cough Stop: 01/26/20 10:12 Diltiazem HCl (Cardizem Cd) 180 mg PO QAM [facility] Stop: 01/26/20 10:14 Last Admin: 12/28/19 07:27 Dose: 180 mg Documented by: Losartan Potassium (Cozaar) 100 mg PO DAILY [facility] Stop: 01/26/20 08:59 Last Admin: 12/28/19 07:28 Dose: 100 mg Documented by: Metoprolol Tartrate (Lopressor) 25 mg PO TID [facility] Stop: 01/27/20 08:59 Ondansetron HCl (Zofran) 4 mg IV Q6H PRN PRN Reason: Nausea Stop: 01/25/20 18:03 Pantoprazole Sodium (Protonix) 40 mg PO DAILY [facility] Stop: 01/26/20 08:59 Last Admin: 12/28/19 07:27 Dose: 40 mg Documented by: Polyethylene Glycol (Miralax Powder Packet) 17 gm PO DAILY PRN PRN Reason: Constipation Stop: 01/25/20 18:03 Prednisone (Prednisone) 50 mg PO DAILY [facility] Stop: 01/26/20 16:14 Last Admin: 12/28/19 07:27 Dose: 50 mg Documented by: Saccharomyces Boulardii (Florastor) 250 mg PO DAILY [facility] Stop: 01/25/20 18:03 Last Admin: 12/28/19 07:27 Dose: 250 mg Documented by: Vitamin D (Vitamin D3) 2,000 units PO DAILY [facility] Stop: 01/26/20 08:59 Last Admin: 12/28/19 07:27 Dose: 2,000 units Documented by:
[2019-12-28 08:54] LABS: Hematocrit (blood only) 44.9 % (37-47); Hemoglobin 15.6 g/dL (12.0-16.0); Mean Corpuscular Hemoglobin 28.1 pg (25-34); Mean Corpuscular Hgb Conc 34.7 g/dL (32-36); Mean Corpuscular Volume 80.9 fL (80-100); Mean Platelet Volume 9.6 fL (7.4-10.4); Platelet Count 461 K/uL (130-400); RDW Coefficient of Variation 13.2 % (11.5-14.5); RDW Standard Deviation 39.3 fL (36.4-46.3); Red Blood Count 5.55 M/uL (4.2-5.4); White Blood Count 13.08 K/uL (4.8-10.8)
[2019-12-28 09:24] LABS: BUN Creatinine Ratio 13.5 (10-20); Calcium 9.4 mg/dl (8.5-10.1); Creatinine Clr Calc Pharmacy 55.4 ml/min; Est GFR (Non-African American) 55.2; Potassium 3.9 mmol/L (3.5-5.1)
--- NOTE | 2019-12-28 16:40 | Hospitalist Progress Note ---
Date of Service December 28, 2019 Assessment & Plan (1) Atrial fibrillation with RVR: rate controlled on diltiazem, Tressa started. Noted that she was on metoprolol 25mg daily at home which was continued by Dr. aCrreon after her false positive stress test a few months back. 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 Treat sinusitis. Noted also on prednisone taper. Monitor on telemetry overnight. Normal echo. (2) Acute sinusitis: Cont Augmentin and prednisone taper as instructed by outpatient provider. (3) FATEMEH (acute kidney injury): resolved (4) Hypomagnesemia: in normal range. (5) Hypertension: At goal, cont home Losartan (6) HLD (hyperlipidemia): cont statin per home regimen. (7) Pre-diabetes: A1C is 6.2 this admission. (8) Morbid (severe) obesity due to excess calories: (9) DVT prophylaxis: Eliquis Full Code Dispo- to home in am or when medically stable and cleared by cardiology. Continue monitoring on telemetry in the meantime. [facility] and [facility]tic[facility]ated Discharge Date Admission Date: December 26, 2019 Anticipated date of discharge: 12/30/19 Subjective Feels better today again Congestion is improved woke up feeling overly warm this morning tele review shows tachy rate into the 180s around 0630 HR improved with diltiazem 180mg PO given around 0730 Currently denies chest pain or SOB Review of Systems Review of Systems: All systems reviewed & are unremarkable except as noted in Subjective Physical Exam Physical Exam: CONSTITUTIONAL: obese, vitals as above, generally well- appearing EYES: normal conjunctivae, no scleral icterus ENT: MMM RESPIRATORY: clear to auscultation bilaterally, no crackles, rales or wheezes, normal respiratory effort CARDIOVASCULAR: irregular rate and rhythm, S1 and 2 heard without murmurs, gallops or rubs, no JVD, no peripheral edema GASTROINTESTINAL: normal bowel sounds, soft, nontender, nondistended MUSCULOSKELETAL: strength 5/5 throughout, head is normocephalic and atraumatic SKIN: warm and dry NEUROLOGIC: CN 2-12 grossly intact, no sensory deficit, normal cognition, no gross focal deficits. PSYCHIATRIC: alert cooperative and oriented to person, place and time. Results & Data ([facility]) Vital Signs (Past 12 Hours) Vital Signs Temp Pulse Resp BP BP Pulse Ox 12/28/19 15:17 36.4 C L 88 19 106/69 93 12/28/19 14:13 92 H 127/85 12/28/19 11:48 36.3 C L 99 H 22 129/81 93 12/28/19 07:23 36.5 C 105 H 20 150/85 H 95 Laboratory Results Short CBC 12/28/19 Range/Units 08:24 WBC 13.08 H (4.8-10.8) K/uL Hgb 15.6 (12.0-16.0) g/dL Hct 44.9 (37-47) % Plt Count 461 H (130-400) K/uL BMP 12/28/19 08:24 Sodium 135 L Potassium 3.9 Chloride 105 Carbon Dioxide 21 BUN 14 Creatinine 1.01 Glucose 191 H Calcium 9.4 Medications Administered Current Inpatient Medications Acetaminophen (Tylenol) 650 mg PO Q4H PRN PRN Reason: Pain or Fever Stop: 01/25/20 18:03 Al Hydrox/Mg Hydrox/Simethicone (Maalox) 15 ml PO Q4H PRN PRN Reason: Dyspepsia Stop: 01/25/20 18:03 Amoxicillin/Clavulanate Potassium (Augmentin 875mg) 1 tab PO BIDM [facility] Stop: 01/05/20 18:03 Last Admin: 12/28/19 07:26 Dose: 1 tab Documented by: Apixaban (Eliquis) 5 mg PO BID [facility] Stop: 01/26/20 10:14 Last Admin: 12/28/19 07:27 Dose: 5 mg Documented by: Atorvastatin Calcium (Lipitor) 40 mg PO DAILY [facility] Stop: 01/26/20 08:59 Last Admin: 12/28/19 07:27 Dose: 40 mg Documented by: Benzonatate (Tessalon Perle) 100 mg PO Q6 PRN PRN Reason: Cough Stop: 01/26/20 10:12 Diltiazem HCl (Cardizem Cd) 180 mg PO QAM [facility] Stop: 01/26/20 10:14 Last Admin: 12/28/19 07:27 Dose: 180 mg Documented by: Losartan Potassium (Cozaar) 100 mg PO DAILY [facility] Stop: 01/26/20 08:59 Last Admin: 03/07/20 07:28 Dose: 100 mg Documented by: Metoprolol Tartrate (Lopressor) 25 mg PO TID [facility] Stop: 01/27/20 13:59 Last Admin: 12/28/19 14:14 Dose: 25 mg Documented by: Ondansetron HCl (Zofran) 4 mg IV Q6H PRN PRN Reason: Nausea Stop: 01/25/20 18:03 Pantoprazole Sodium (Protonix) 40 mg PO DAILY [facility] Stop: 01/26/20 08:59 Last Admin: 12/28/19 07:27 Dose: 40 mg Documented by: Polyethylene Glycol (Miralax Powder Packet) 17 gm PO DAILY PRN PRN Reason: Constipation Stop: 01/25/20 18:03 Prednisone (Prednisone) 50 mg PO DAILY [facility] Stop: 01/26/20 16:14 Last Admin: 12/28/19 07:27 Dose: 50 mg Documented by: Saccharomyces Boulardii (Florastor) 250 mg PO DAILY [facility] Stop: 01/25/20 18:03 Last Admin: 12/28/19 07:27 Dose: 250 mg Documented by: Vitamin D (Vitamin D3) 2,000 units PO DAILY [facility] Stop: 01/26/20 08:59 Last Admin: 12/28/19 07:27 Dose: 2,000 units Documented by:
[2019-12-29] MEDS: predniSONE 50 MG TAB PO SCH (07:46)
[2019-12-29] MEDS: METOPROLOL TARTRATE 25 MG TAB PO SCH ×2 (07:46→13:42)
[2019-12-29] MEDS: ATORVASTATIN 40 MG TAB PO SCH (07:46)
[2019-12-29] MEDS: PANTOprazole 40 MG TAB PO SCH (07:46)
[2019-12-29] MEDS: LOSARTAN POTASSIUM 50 MG TAB PO SCH (07:46)
[2019-12-29] MEDS: SACCHAROMYCES BOULARDII 250 MG CAP PO SCH (07:46)
[2019-12-29] MEDS: APIXABAN 2.5 MG TAB PO SCH (07:46)
[2019-12-29] MEDS: CHOLECALCIFEROL 1,000 UNITS 25 MCG TAB PO SCH (07:46)
[2019-12-29] MEDS: AMOXICILLIN/CLAVULANATE 875 MG TAB PO SCH ×2 (07:46→16:42)
[2019-12-29] MEDS: dilTIAZem HCL 180 MG CAPCR PO SCH (07:46)
--- NOTE | 2019-12-29 12:06 | Hospitalist Progress Note ---
Date of Service December 29, 2019 Assessment & Plan (1) Atrial fibrillation with RVR: rate controlled on diltiazem, Tressa started. Noted that she was on metoprolol 25mg daily at home which was continued by Dr. Carreon after her false positive stress test a few months back. 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 Treat sinusitis. Noted also on prednisone taper. Monitor on telemetry overnight. Normal echo. (2) Acute sinusitis: Cont Augmentin and prednisone taper as instructed by outpatient provider. (3) FATEMEH (acute kidney injury): resolved (4) Hypomagnesemia: in normal range. (5) Hypertension: At goal, cont home Losartan (6) HLD (hyperlipidemia): cont statin per home regimen. (7) Pre-diabetes: A1C is 6.2 this admission. (8) Morbid (severe) obesity due to excess calories: BMI 44.5 Encourage lifestyle modifications (9) DVT prophylaxis: Eliquis Full Code Dispo- to home in am or when medically stable and cleared by cardiology. Continue monitoring on telemetry in the meantime. Cindy Goetz DO [facility] Hospitalist Admission and Anticipated Discharge Date Admission Date: December 26, 2019 Anticipated date of discharge: 12/30/19 Subjective Patient is feeling well today. Reports her upper respiratory congestion and sinusitis is improving. Denies chest pain or shortness of breath. Hoping to go home soon. Telemetry review revealed persistent atrial fibrillation in the 80s to 90s overnight Review of Systems Review of Systems: All systems reviewed & are unremarkable except as noted in Subjective Physical Exam Physical Exam: CONSTITUTIONAL: obese, vitals as above, generally well- appearing EYES: normal conjunctivae, no scleral icterus ENT: MMM RESPIRATORY: clear to auscultation bilaterally, no crackles, rales or wheezes, normal respiratory effort CARDIOVASCULAR: irregular rate and rhythm, S1 and 2 heard without murmurs, gallops or rubs, no JVD, no peripheral edema GASTROINTESTINAL: normal bowel sounds, soft, nontender, nondistended MUSCULOSKELETAL: strength 5/5 throughout, head is normocephalic and atraumatic SKIN: warm and dry NEUROLOGIC: CN 2-12 grossly intact, no sensory deficit, normal cognition, no gross focal deficits. PSYCHIATRIC: alert cooperative and oriented to person, place and time. Results & Data ([facility]) Vital Signs (Past 12 Hours) Vital Signs Temp Pulse Resp BP BP Pulse Ox 12/29/19 11:56 36.6 C 85 20 103/70 96 12/29/19 07:40 79 102/62 12/29/19 06:00 36 C L 74 19 124/64 96 12/28/19 23:21 36.5 C 88 20 125/75 96 Medications Administered Current Inpatient Medications Acetaminophen (Tylenol) 650 mg PO Q4H PRN PRN Reason: Pain or Fever Stop: 01/25/20 18:03 Al Hydrox/Mg Hydrox/Simethicone (Maalox) 15 ml PO Q4H PRN PRN Reason: Dyspepsia Stop: 01/25/20 18:03 Amoxicillin/Clavulanate Potassium (Augmentin 875mg) 1 tab PO BIDM [facility] Stop: 01/05/20 18:03 Last Admin: 12/29/19 07:46 Dose: 1 tab Documented by: Apixaban (Eliquis) 5 mg PO BID [facility] Stop: 01/26/20 10:14 Last Admin: 12/29/19 07:46 Dose: 5 mg Documented by: Atorvastatin Calcium (Lipitor) 40 mg PO DAILY [facility] Stop: 01/26/20 08:59 Last Admin: 12/29/19 07:46 Dose: 40 mg Documented by: Benzonatate (Tessalon Perle) 100 mg PO Q6 PRN PRN Reason: Cough Stop: 01/26/20 10:12 Diltiazem HCl (Cardizem Cd) 180 mg PO QAM [facility] Stop: 01/26/20 10:14 Last Admin: 12/29/19 07:46 Dose: 180 mg Documented by: Losartan Potassium (Cozaar) 100 mg PO DAILY [facility] Stop: 01/26/20 08:59 Last Admin: 12/29/19 07:46 Dose: 100 mg Documented by: Metoprolol Tartrate (Lopressor) 25 mg PO TID [facility] Stop: 01/27/20 13:59 Last Admin: 12/29/19 07:46 Dose: 25 mg Documented by: Ondansetron HCl (Zofran) 4 mg IV Q6H PRN PRN Reason: Nausea Stop: 01/25/20 18:03 Pantoprazole Sodium (Protonix) 40 mg PO DAILY [facility] Stop: 01/26/20 08:59 Last Admin: 12/29/19 07:46 Dose: 40 mg Documented by: Polyethylene Glycol (Miralax Powder Packet) 17 gm PO DAILY PRN PRN Reason: Constipation Stop: 01/25/20 18:03 Prednisone (Prednisone) 50 mg PO DAILY [facility] Stop: 01/26/20 16:14 Last Admin: 12/29/19 07:46 Dose: 50 mg Documented by: Saccharomyces Boulardii (Florastor) 250 mg PO DAILY [facility] Stop: 01/25/20 18:03 Last Admin: 12/29/19 07:46 Dose: 250 mg Documented by: Vitamin D (Vitamin D3) 2,000 units PO DAILY [facility] Stop: 01/26/20 08:59 Last Admin: 12/29/19 07:46 Dose: 2,000 units Documented by:
--- NOTE | 2019-12-29 13:47 | Cardiology Progress Note ---
Date of Service December 29, 2019 Assessment & Plan (1) Atrial fibrillation with RVR: (2) Acute sinusitis: (3) Dehydration: The patient is feeling markedly improved today and her heart rates are better. The plan is for rate control and anticoagulation. We can follow her as an outpatient. The patient would like to be discharged home and I believe that that is appropriate per the hospitalist. Subjective Patient feels markedly improved today. She sitting in a chair. Telemetry indicates persistent atrial fibrillation but heart rates which are better controlled. Review of Systems Review of Systems: All systems reviewed & are unremarkable except as noted in HPI & below Nothing additional to add Physical Exam Physical Exam: General: no acute distress and stated age Head: normocephalic, no masses, lesions, tenderness or abnormalities Eyes: conjunctiva are pink and non-injected, sclera clear Neck: supple, no adenopathy, no bruits, normal jugular venous pulse, no hepatojugular reflux Chest: normal shape and normal respiratory effort Lungs: clear to auscultation and percussion Cardiac Exam: - irregular rate & rhythm, no murmurs gallops or rubs - normal S1, normal S2 Pulses: 2(+) throughout Abdomen: abdomen soft, non-tender, no abnormal masses and no hepatosplenomegaly Musculoskeletal: no gait disturbance, no joint inflammation, no deforming arthritis Extremities: no edema and no cyanosis Neuro: grossly normal exam Results & Data Vital Signs (Past 12 Hours) Vital Signs Temp Pulse Resp BP BP Pulse Ox 12/29/19 13:37 67 105/72 12/29/19 11:56 36.6 C 85 20 103/70 96 12/29/19 07:40 79 102/62 12/29/19 06:00 36 C L 74 19 124/64 96 Medications Administered Current Inpatient Medications Acetaminophen (Tylenol) 650 mg PO Q4H PRN PRN Reason: Pain or Fever Stop: 01/25/20 18:03 Al Hydrox/Mg Hydrox/Simethicone (Maalox) 15 ml PO Q4H PRN PRN Reason: Dyspepsia Stop: 01/25/20 18:03 Amoxicillin/Clavulanate Potassium (Augmentin 875mg) 1 tab PO BIDM [facility] Stop: 01/05/20 18:03 Last Admin: 12/29/19 07:46 Dose: 1 tab Documented by: Apixaban (Eliquis) 5 mg PO BID [facility] Stop: 01/26/20 10:14 Last Admin: 12/29/19 07:46 Dose: 5 mg Documented by: Atorvastatin Calcium (Lipitor) 40 mg PO DAILY [facility] Stop: 01/26/20 08:59 Last Admin: 12/29/19 07:46 Dose: 40 mg Documented by: Benzonatate (Tessalon Perle) 100 mg PO Q6 PRN PRN Reason: Cough Stop: 01/26/20 10:12 Diltiazem HCl (Cardizem Cd) 180 mg PO QAM [facility] Stop: 01/26/20 10:14 Last Admin: 12/29/19 07:46 Dose: 180 mg Documented by: Losartan Potassium (Cozaar) 100 mg PO DAILY [facility] Stop: 01/26/20 08:59 Last Admin: 12/29/19 07:46 Dose: 100 mg Documented by: Metoprolol Tartrate (Lopressor) 25 mg PO TID [facility] Stop: 01/27/20 13:59 Last Admin: 12/29/19 13:42 Dose: 25 mg Documented by: Ondansetron HCl (Zofran) 4 mg IV Q6H PRN PRN Reason: Nausea Stop: 01/25/20 18:03 Pantoprazole Sodium (Protonix) 40 mg PO DAILY [facility] Stop: 01/26/20 08:59 Last Admin: 12/29/19 07:46 Dose: 40 mg Documented by: Polyethylene Glycol (Miralax Powder Packet) 17 gm PO DAILY PRN PRN Reason: Constipation Stop: 01/25/20 18:03 Prednisone (Prednisone) 50 mg PO DAILY [facility] Stop: 01/26/20 16:14 Last Admin: 12/29/19 07:46 Dose: 50 mg Documented by: Saccharomyces Boulardii (Florastor) 250 mg PO DAILY [facility] Stop: 01/25/20 18:03 Last Admin: 12/29/19 07:46 Dose: 250 mg Documented by: Vitamin D (Vitamin D3) 2,000 units PO DAILY [facility] Stop: 01/26/20 08:59 Last Admin: 12/29/19 07:46 Dose: 2,000 units Documented by:
--- NOTE | 2019-12-29 16:57 | Discharge Summary ---
Date of Service December 29, 2019 Admission HPI Per Admitting Provider This is a 74-year-old female with significant PMH of HTN, HLD, prediabetes, CKD stage III, morbid obesity, CUCO noncompliant with CPAP, GERD who presents to ED at the referral of PCP secondary to A. fib with RVR. Patient expresses she has been having URI-like symptoms for 8 days. She complains of sinus congestion with purulent rhinorrhea, teeth pain, facial pain, feeling feverish, myalgias for the past 8 days. 2 days ago symptoms started to improve however when she woke up this morning she felt significantly worse and her left eye was, "crusted shut." She also elicits to having intermittent heart palpitations for the past 1 week. She scheduled appointment to see PCP today for URI-like symptoms and she was found to be in A. fib with RVR with heart rate in the 180s. She denies any previous history of atrial arrhythmias. She denies any documented fever, chills, sweats, lightheadedness, dizziness, chest pain. She does complain of LANDRY but felt this was secondary to her URI-like symptoms. She denies any nausea, vomiting, diarrhea, change in bowel or urinary habits. She has been taking OTC sinus medications as well as nasal spray, but unsure of what kind. She last took these approximately 2 days ago. She does have hx of HTN controlled on oral antihypertensives. +Hx of CUCO but not compliant with CPAP. In ED she was in afib with RVR but otherwise hemodynamically stable. She received 2 - 10mg bolus of IV cardizem with improvements in heart rate. With minimal activity she would spike in the 160s-180s. Lab work abnormalities noted for mild elevated WBC 11 K t, H&H 16.9 and 49.0, platelet 146, K3.7, mag 1.7, BUN 17, creatinine 1.36, glucose 120, troponin 0.015, TSH WNL. Chest x-ray was negative for acute cardiopulmonary abnormality but did reveal cardiomegaly. Initial EKG revealed A. fib with a heart rate of [address] depressions. Admission Exam Per Admitting Provider Constitutional: WD/WN, morbidly obese, F, vitals as above, NAD, sitting up in bed, pleasant, conversing easily Head: Normocephalic, Atraumatic Eyes: PERRL, conjunctivae normal, anicteric sclerae ENMT: external ear and nose normal,+ facial swelling, pain to palpation of maxillary sinus, oropharynx normal Neck: trachea midline, no thyromegaly normal visual inspection Respiratory: normal respiratory effort, lungs clear to auscultation, no wheeze, rales, rhonchi. Normal insp/exp effort, no accessory muscle use Cardiovascular: IRR, IRR, no murmur, trace - + 1 b/l lower ext edema Vessels: no JVD or carotid bruit Chest: normal inspection of chest Abdomen: normal bowel sounds, soft, nontender, no hepatosplenomegaly Musculoskeletal: no cyanosis or clubbing, extremities motor strength 5/5 Skin: no rashes, warm and dry normal turgor Neurologic: PERRL, EOMI, accommodation nl, no face palsy, no dysarthria CN's II-XI intact bilaterally and moves all extremities Psychiatric: A+Ox3, euthymic affect Lymphatic: no cervical or axillary lymphadenopathy : deferred Principal Diagnosis Acute sinusitis New onset atrial fibrillation Discharge Exam CONSTITUTIONAL: obese, vitals as above, generally well-appearing EYES: normal conjunctivae, no scleral icterus ENT: MMM RESPIRATORY: clear to auscultation bilaterally, no crackles, rales or wheezes, normal respiratory effort CARDIOVASCULAR: irregular rate and rhythm, S1 and 2 heard without murmurs, gallops or rubs, no JVD, no peripheral edema GASTROINTESTINAL: normal bowel sounds, soft, nontender, nondistended MUSCULOSKELETAL: strength 5/5 throughout, head is normocephalic and atraumatic SKIN: warm and dry NEUROLOGIC: CN 2-12 grossly intact, no sensory deficit, normal cognition, no gross focal deficits. PSYCHIATRIC: alert cooperative and oriented to person, place and time. Discharge Data Allergies Allergy/AdvReac Type Severity Reaction Status Date / Time No Known Allergies Allergy Unverified 12/26/19 15:36 Consultations 12/26/19 16:31 ED Decision to Admit Stat 12/26/19 16:49 Consult Cardiology Routine Hospital Course (1) Atrial fibrillation with RVR: (2) Acute sinusitis: (3) FATEMEH (acute kidney injury): 74-year-old female presented to the ER as a referral from her primary care physician who was seeing her for acute sinusitis. She was noted to be in new onset atrial fibrillation with RVR. She was admitted to the hospitalist service and monitored on telemetry. Cardiology was consulted. She was placed on a diltiazem drip with improvement in heart rate overnight. She was placed on a heparin drip as she had a chads 2 VASC score of 3. She was swabbed for flu which was negative. Augmentin was continued for sinusitis and she was continued on prednisone taper, both of which were the recommended treatment plan from her primary care physician. An echocardiogram was ordered revealing moderate concentric LVH with an EF 60 to 65% and no segmental left ventricular wall motion abnormalities noted. There was also no significant valvular pathology. Cardiology recommendations included initiation of Eliquis for long-term anticoagulation and rate control with Cardizem CD 180 mg daily. Her metoprolol was also continued which was 25 mg daily. She was rate controlled until the following morning when her heart rate shot up into the 180s. Her oral diltiazem was given 2 hours earlier and this brought her heart rate back into range. This tachycardia was thought to be exacerbated from her underlying upper respiratory tract infection. During the next 24 hours she had no evidence of uncontrolled heart rate or alarm events. She remained in atrial fibrillation during her entire hospitalization. At time of discharge she was hemodynamically stable and afebrile and tolerating p.o. She was mentating and ambulating at baseline and was discharged in stable condition with close primary care follow-up recommend ed. A 4-week cardiology follow-up was recommended to discuss long-term treatment for atrial fibrillation. 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 You are being given an increased amount of Lopressor, and a new medication called diltiazem. Both these medications will control your heart rate while in atrial fibrillation. You are being given Eliquis which is a blood thinner that will help to prevent stroke secondary to atrial fibrillation. You are being given a reduced amount of Augmentin to account for the Augmentin you received in the hospital here. You are being given a new prescription for prednisone taper to account for the prednisone you received in the hospital here. You do not need to slate picker the prescription for Augmentin or prednisone that was sent to the [facility] in [place] by your primary care doctor. It is recommended that you follow-up with both primary care and cardiology soon after discharge. Primary care follow-up was recommended within a week and this is to ensure you are still doing well on the medications and recheck your blood pressure and pulse. This is also to ensure that your sinus infection has resolved. It was a pleasure taking care of you! Please call if you have any questions or problems. You can reach a [facility] hospitalist on duty at [facility] 24 hours a day by calling [phone]. Take care of yourself. Cindy Goetz, [facility] Hospitalist Pending Studies at Discharge: No Stand-Alone Forms: My [facility], Smoking Cessation Medications and DC Order Prescriptions: New amoxicillin-pot clavulanate [Augmentin] 875-125 mg Tablet 1 tab PO BIDM 7 Days Qty: 14 RF: 0 Eliquis 5 mg tablet 5 mg PO BID Qty: 60 RF: 1 diltiazem HCl 180 mg Capsule,Extended Release 24hr 180 mg PO QAM Qty: 30 RF: 1 metoprolol tartrate 25 mg Tablet 25 mg PO TID 30 Days Qty: 90 RF: 1 prednisone 10 mg tablet 10 mg PO UD Qty: 20 RF: 0 Continued atorvastatin 40 mg Tablet 40 mg PO DAILY RF: 0 pantoprazole 40 mg Tablet,Delayed Release (Dr/Ec) 40 mg PO DAILY RF: 0 losartan [Cozaar] 100 mg Tablet 100 mg PO DAILY RF: 0 cholecalciferol (vitamin D3) [Vitamin D3] 50 mcg (2,000 unit) Tablet 2,000 unit PO DAILY RF: 0 Discontinued aspirin [Aspir-81] 81 mg Tablet,Delayed Release (Dr/Ec) 81 mg PO DAILY RF: 0 metoprolol tartrate 25 mg Tablet 25 mg PO DAILY RF: 0 Discharge Orders: Discharge Order (Routine); Ordered 12/29/19 Ordered By: Cindy Edwards/Other Patient Handouts: Prediabetes, A1C Admission Data Admit Date/Time: 12/26/19 16:49 Attending Provider: Cindy Goetz Admit Provider: Kartik Casas Primary Care Provider: Wilda eDluca Other Providers: Kartik Casas ; Delvin Carreon Other Interventions: Discharge Summary Assessment (RN) Last Done: 12/29/19 17:11 DC Date/Time DO NOT enter until pt leaves facility: 12/29/19 17:49
--- NOTE | 2019-12-30 12:17 | Electrocardiogram Report ---
Test Reason : Blood Pressure : / mmHG Vent. Rate : 146 BPM Atrial Rate : 147 BPM P-R Int : 000 ms QRS Dur : 082 ms QT Int : 292 ms P-R-T Axes : 000 -28 123 degrees QTc Int : 455 ms Atrial fibrillation with rapid ventricular response Minimal voltage criteria for LVH, may be normal variant Nonspecific ST and T wave abnormality Abnormal ECG When compared with ECG of 27-DEC-2019 06:31, Vent. rate has increased BY 63 BPM Confirmed by Pravin Tomas ([id number]) on 12/30/2019 12:16:35 PM Referred By: Zacarias Schultz Confirmed By:Pravin Tomas
== END 2019-12-29 17:49 | disposition home or self-care (01) | DRG 309 ==
LOC: ED 14:47 → SUATTDRO 16:49 → 2S 16:49